=== PATIENT | female | born 1995 | race Caucasian/White ===

== ENCOUNTER 2020-05-13 10:47 | Emergency (ER) | payer MEDICAID ==
[~2020-05-13] VITALS: Ht 160 cm; Wt 61.3 kg
[2020-05-13 11:00] VITALS: BP 125/70
== END 2020-05-13 12:07 | disposition home or self-care (01) ==
LOC: ED 10:47
DX: R43.9 Unspecified disturbances of smell and taste (principal); R11.0 Nausea; Z20.822 Contact with and (suspected) exposure to COVID-19

== ENCOUNTER 2020-12-01 01:47 | Emergency (ER) | payer MEDICAID ==
[~2020-12-01] VITALS: Ht 160 cm; Wt 63.6 kg
[2020-12-01] MEDS ORDERED: AMOXICILLIN500 M2 PO (02:21)
[2020-12-01] MEDS ORDERED: PERCOCET 5/325M1 TAB PO (02:21)
[2020-12-01 02:26] VITALS: BP 133/91
== END 2020-12-01 02:32 | disposition home or self-care (01) ==
LOC: ED 01:47
DX: K05.10 Chronic gingivitis, plaque induced (principal)